=== PATIENT | female | born 1960 | race Caucasian/White ===

== ENCOUNTER 2017-09-25 11:08 | Outpatient (CLI) | payer BC ==
[~2017-09-25] VITALS: Ht 160 cm; Wt 158.6 kg
--- NOTE | ~2017-09-25 | HEMODYNAMI ---
PATIENT:MASOOD ALARCON MEDICAL RECORD: [id number] : 62 LOCATION:[facility] ADMISSION DATE: 09/25/17 Generatedon:09/25/201715:03 Patient name: MASOOD ALARCON Patient #: [id number] SSN: : 1960 Date of study: 09/25/2017 Page: Of Hemodynamic Procedure Report Patient Data Patient Demographics Procedure consent was obtained First Name: MASOOD Gender: Female Last Name: DORIAN : 1960 Middle Initial: D Age: 56 year(s) Patient #: [id number] Race: Unknown Additional ID: [id number] Contact details [address]: [address] [place] [address] State: [place] City: [place] Zip code: [address] Admission Admission Data Admission Date: 09/25/2017 Admission Time: 11:08 Lab Results Lab Result Date: 09/25/2017 Lab Result Time: 0:00 Biochemistry Name Units Result Min Max BUN mg/dl 12 --(-*--)-- 7 18 Creatinine mg/dl 0.7 --(*---)-- 0.6 1.3 CBC Name Units Result Min Max Hemoglobin g/dl 15.1 --(-*--)-- 13.5 17.5 Procedure Procedure Types Cath Procedure Diagnostic Procedure [facility] w/Coronaries Miscellaneous Procedures Moderate Sedation up to 45 minutes Procedure Description Procedure Date Procedure Date: 09/25/2017 Procedure Start Time: 14:43 Procedure End Time: 14:59 Procedure Staff Name Function Alo Arciniega MD Performing Physician Emily Taylor RT Monitor Monique Toscano RT Scrub Cornel Barajas RN Nurse Procedure Data Cath Procedure Fluoroscopy Diagnostic fluoroscopy Total fluoroscopy Time: 5 time: 5 min min Diagnostic fluoroscopy Total fluoroscopy dose: dose: 1326 mGy 1326 mGy Contrast Material Contrast Material Type Amount (ml) Isovue 300 94 Entry Location Entry Primary Successful Side Size Upsize Upsize Entry Closure Nolan ccessful Closure Location (Fr) 1 (Fr) 2 (Fr) Remarks Device Remarks Radial Right 6 Fr Mechanical artery Short Compression Estimated blood loss: 5 ml Diagnostic catheters Device Type Used For End Catheter Placement Diagnostic Terumo 5Fr Multi-vessel Grand Chain 110cm catheter Angiography Diagnostic Infinity 5Fr Right Coronary AR MOD Catheter Angiography Diagnostic Infinity 5Fr LV Angiography Pigtail catheter Procedure Complications No complications Procedure Medications Medication Administration Route Dosage Oxygen NC 2 l/min Heparin Flush Bag added to field 2 bags (1000units/500ml NS) 0.9% NaCl I.V. 100 ml/hr Radial Cocktail added to field 1 syringe (Verapomil 2mg/Nitro 400mcg/Heparin 1500units) Fentanyl I.V. 50 mcg Versed I.V. 1 mg Fentanyl I.V. 50 mcg Versed I.V. 1 mg Radial Cocktail I.A. 1 syringe (Verapomil 2mg/Nitro 400mcg/Heparin 1500units) Fentanyl I.V. 50 mcg Hemodynamics Rest HGB: 15.1 (g/dl) Heart Rate: 94 (bpm) Pressure Samples Time Site Value (mmHg) Purpose Heart Use Rate(bpm) 14:47 LV 134/24,26 Snapshot 97 14:47 LV 148/12,21 Snapshot 107 14:55 LV 156/14,23 Snapshot 96 Gradients Valve Time Site Site Mean SEP/DFP Peak To Heart Use 1 2 (mmHg) (sec/min) Peak Rate (mmHg) (bpm) Aortic 14:56 LV AO 102 Snapshots Pre Cath Intra NCS Post Cath Vital Signs Time Heart Resp SPO2 etCO2 NIBP (mmHg) Rhythm Pain Sedation Rate (ipm) (%) (mmHg) Status Level (bpm) 14:29:57 90 17 95 0 98/55(82) NSR 0 (11) 10(A) , No pain 14:36:00 82 18 94 26.2 107/53(76) NSR 0 (11) 10(A) , No pain 14:40:20 98 19 94 21.7 107/88(100) NSR 0 (11) 10(A) , No pain 14:44:52 99 18 93 26.2 88/60(79) NSR 0 (11) 10(A) , No pain 14:49:06 100 18 26.2 88/78(85) NSR 0 (11) 9(A) , No pain 14:53:37 102 16 92 29.2 92/50(78) NSR 0 (11) 9(A) , No pain 14:58:07 108 18 95 29.2 94/51(72) NSR 0 (11) 10(A) , No pain Medications Time Medication Route Dose Verified Delivered Reason Notes Effectiveness by by 14:37:19 Oxygen NC 2 l/min Alo Cornel Per Demian Barajas RN physician 14:37:32 Heparin Flush added 2 bags Alo Cornel used for Bag to Demian Barajas RN procedure (1000units/500ml field NS) 14:37:40 0.9% NaCl I.V. 100 Alo Cornel Per ml/hr Demian Barajas RN physician 14:37:48 Radial Cocktail added 1 Alo Cornel used for (Verapomil to syringe Demian Barajas RN procedure 2mg/Nitro field 400mcg/Heparin 1500units) 14:40:24 Fentanyl I.V. 50 mcg Alo Cornel for sedation Demian Barajas RN 14:40:31 Versed I.V. 1 mg Alo Cornel for sedation Demian Barajas RN 14:45:17 Fentanyl I.V. 50 mcg Alo Cornel for sedation Demian Barajas RN 14:45:21 Versed I.V. 1 mg Alo Cornel for sedation Demian Barajas RN 14:45:32 Radial Cocktail I.A. 1 Alo Alo for (Verapomil syringe Demian Arciniega MD vasodilation 2mg/Nitro 400mcg/Heparin 1500units) 14:49:33 Fentanyl I.V. 50 mcg Alo Cornel for sedation Demian Barajas RN Procedure Log Time Note 14:03:14 Emily Taylor RT(R) sent for patient. Start room use. 14:12:57 Diagnostic Cath Status : Elective 14:13:15 Time tracking: Regular hours 14:13:19 Plan of Care:Hemodynamics will remain stable., Cardiac rhythm will remain stable., Comfort level will be maintained., Respiratory function will remain adequate., Patient/ family verbilizes understanding of procedure., Procedure tolerated without complication., Recovers from procedure without complications.. 14:19:23 Patient received from Pre/Post Procedure Room to [facility] 2 Alert and oriented. Tansferred to table in Supine position. 14:19:33 Warm blankets applied, and jack hugger turned on for patient comfort. 14:19:34 Correct patient and procedure confirmed by team. 14:19:36 Signed procedure consent form obtained from patient. 14:19:44 ECG and BP/O2 sat monitors applied to patient. 14:28:21 Vital chart was started 14:32:14 Baseline sample Acquired. 14:32:20 Rhythm: sinus rhythm 14:32:22 Full Disclosure recording started 14:32:29 H&P Date Dictated: 09/25/2017 New H&P dictated by physician.. 14:32:30 Pre-procedure instructions explained to patient. 14:32:31 Pre-op teaching completed and patient verbalized understanding. 14:32:46 Family in waiting room. 14:33:08 Patient NPO since Midnight. 14:35:42 Is the patient allergic to Iodine/contrast media? Yes. 14:35:43 Was the patient premedicated? Yes 14:35:45 Is patient on blood thinner?No 14:37:19 Oxygen 2 l/min NC was administered by Cornel Barajas RN; Per physician; 14:37:32 Heparin Flush Bag (1000units/500ml NS) 2 bags added to field was administered by Cornel Barajas RN; used for procedure; 14:37:40 0.9% NaCl 100 ml/hr I.V. was administered by Cornel Barajas RN; Per physician; 14:37:48 Radial Cocktail (Verapomil 2mg/Nitro 400mcg/Heparin 1500units) 1 syringe added to field was administered by Cornel Barajas RN; used for procedure; 14:38:21 Patient diabetic? No. 14:38:24 Previous problem with sedation/anesthesia? No ? 14:38:26 Snore? Yes 14:38:35 Sleep apnea? Yes 14:38:36 Deviated septum? No 14:38:46 Opens mouth fully? Yes 14:38:47 Sticks out tongue? Yes 14:38:52 Airway obstruction? Yes asthma 14:38:55 Dentures? Yes out 14:39:00 Pre procedure: right dorsailis pedis pulse 2+ Normal; easily identifiable; not easily obliterated 14:39:03 Pre procedure: left dorsailis pedis pulse 2+ Normal; easily identifiable; not easily obliterated 14:39:06 Patient pain scale 0/10 ?. 14:39:12 IV patent on arrival in left forearm with 0.9% NaCl at [facility]. 14:39:30 Lab Result : BUN 12 mg/dl 14:39:30 Lab Result : Creatinine 0.7 mg/dl 14:39:30 Lab Result : Hemoglobin 15.1 g/dl 14:39:42 Lab results completed and on chart. 14:39:47 Right Radial & Right Groin area was prepped with chlora-prep and draped in sterile fashion 14:39:48 Alarms reviewed by R. N. 14:39:48 Sharps counted by scrub and verified by R.N. 14:39:50 Physician arrived 14:39:51 --------ALL STOP TIME OUT------ 14:39:52 Final Timeout: patient, procedure, and site verified with staff and physician. All members of the team are in agreement. 14:39:54 Right Radial & Right Groin site verified by team. 14:39:57 Physical assessment completed. ASA score P 2 - A patient with mild systemic disease as per Alo Arciniega MD. 14:40:01 Sedation plan: IV Moderate Sedation Medication:Versed, Fentanyl 14:40:24 Fentanyl 50 mcg I.V. was administered by Cornel Barajas RN; for sedation; 14:40:31 Versed 1 mg I.V. was administered by Cornel Barajas RN; for sedation; 14:42:47 Use device set Radial Dx 14:42:48 Acist Syringe opened to sterile field. 14:42:49 Medline Cath Pack opened to sterile field. 14:42:49 Bag Decanter opened to sterile field. 14:42:49 Terumo 6Fr Slender Glidesheath opened to sterile field. 14:42:50 St Osorio 260cm J .035 wire opened to sterile field. 14:42:50 Acist Hand Control opened to sterile field. 14:42:51 Acist Manifold opened to sterile field. 14:42:51 Tegaderm 4 x 4 opened to sterile field. 14:42:51 MBrace Wrist Support opened to sterile field. 14:42:53 Procedure started. 14:43:01 Local anesthetic to right radial artery with Lidocaine 2% by Alo Arciniega MD.INITIAL ACCESS ONLY 14:44:50 Zero performed for pressure channel P1 14:45:05 A 6 Fr Short sheath was inserted into the Right Radial artery 14:45:17 Fentanyl 50 mcg I.V. was administered by Cornel Barajas RN; for sedation; 14:45:21 Versed 1 mg I.V. was administered by Cornel Barajas RN; for sedation; 14:45:32 Radial Cocktail (Verapomil 2mg/Nitro 400mcg/Heparin 1500units) 1 syringe I.A. was administered by Alo Arciniega MD; for vasodilation; 14:46:00 A Diagnostic Terumo 5Fr Grand Chain 110cm catheter was advanced over the wire and used for Multi-vessel Angiography. 14:47:19 LV hemodynamics recorded. 14:47:21 LV gram done using ROBERTS 14:47:24 Injector settings: Ml/sec: 5, Volume: 15, 14:48:26 LCA angiography performed. 14:49:03 Injector settings: Ml/sec: 3, Volume: 6, 14:49:33 Fentanyl 50 mcg I.V. was administered by Cornel Barajas RN; for sedation; 14:50:58 Catheter removed. 14:51:36 A Diagnostic Infinity 5Fr AR MOD Catheter was advanced over the wire and used for Right Coronary Angiography. 14:53:32 RCA angiography performed. 14:53:36 Injector settings: Ml/sec: 3, Volume: 6, 14:54:08 Catheter removed. 14:54:24 A Diagnostic Infinity 5Fr Pigtail catheter was advanced over the wire and used for LV Angiography. 14:55:55 EF : 60 % 14:57:17 Aortic Root visualized 14:57:38 Catheter removed. 14:57:59 Sheath removed intact; hemostasis achieved with Mechanical Compression to the Right Radial artery. 14:58:00 Procedure ended.(Physican Out) 14:58:24 Terumo TR Band Large opened to sterile field. 14:58:29 Fluoroscopy time 05.00 minutes. 14:58:34 Flurop Dose total: 1326 14:58:34 Fluoroscopy dose: 1326 mGy 14:58:38 Contrast amount:Isovue 300 94ml. 14:58:39 Sharps counted by scrub and verified by R.N. 14:58:42 TR band inflated with 10cc of air. 14:58:43 Insertion/operative site no bleeding no hematoma. 14:58:47 Post right radial artery:stable 14:58:48 Post Procedure Pulses reassessed and unchanged 14:58:51 Post procedure rhythm: unchanged. 14:58:53 Estimated blood loss: 5 ml 14:58:54 Post procedure instruction explained to patient.Patient verbalizes understanding. 14:58:55 Patient needs reinforcement of post procedure teaching. 14:59:05 Procedure type changed to Cath procedure, Diagnostic procedure, LHC, LHC w/Coronaries, Miscellaneous Procedures, Moderate Sedation up to 45 minutes 14:59:06 Procedure and supply charges have been captured, reviewed, submitted and are correct. 14:59:10 Procedure Complication : No complications 14:59:12 Vital chart was stopped 14:59:13 See physician's report for complete and final results. 14:59:15 Report given to Pre/Post Procedure Room. 14:59:18 Patient transfered to Pre/Post Procedure Room with Stretcher. 14:59:19 Procedure ended. 14:59:19 Full Disclosure recording stopped 14:59:44 End room use (Document Last) Device Usage Item Name Manufacture Quantity Catalog Hospital Part Current Minimal Lot# / Number Charge Number Stock Stock Serial# Code Acist Acist 1 [id number] 698845 728941 850750 20 Syringe [employer] Medline Cardinal 1 [id number] 77801 545532 5 Cath Pack Health Bag Microtek 1 2002S 434795 67722 466646 5 [employer] Terumo 6Fr Terumo 1 [id number] 789726 223105 684280 [address] [place] [address] [place] 1 [id number] 412104 205953 869583 30 260cm J .035 wire Acist Hand Acist 1 57293 141427 310420 426116 5 Control [employer] Inc Acist Acist 1 61816 111494 187646 435959 5 Manifold Medical [employer] Inc Tegaderm 4 3M 1 1626W 974692 523122 315759 5 x 4 MBrace Advanced 1 140-0250-00 083543 26905 159139 5 Wrist Vascular Support Dynamics Diagnostic Terumo 1 91-8858 469750 507349 507562 5 Terumo 5Fr Grand Chain 110cm catheter Diagnostic Cardinal 1 [id number] 018635 162228 408765 15 Infinity Health 5Fr AR MOD Catheter Diagnostic Cardinal 1 [id number] 446166 947287 120494 5 Infinity Health 5Fr Pigtail catheter Terumo TR Terumo 1 [id number] 632526 219623 930791 40 Band Large Signature Audit [place] Stage Time Signature Unsigned Intra-Procedure 09/25/2017 Emily Taylor 3:03:07 PM RT(R) Signatures Monitor : Emily Taylor RT Signature : Date : Time : [id number] [place] [address]
[~2017-09-25 11:08] MED LIST: ADVIL200 MG PO; BYSTOLIC10 MG PO; BYSTOLIC5 MG PO; CELEXA20 MG PO; HYDROCODON-ACE1 EAC7 PO; MEDROL DOSE PACK4 MG PO; VENTOLIN HFA18 GM INH; ZOCOR20 MG PO; ZOFRAN ODT4 MG/UDTAB PO; ZOFRAN4 MG PO
[2017-09-25] MEDS ORDERED: VALIUM5 MG PO (11:55)
[2017-09-25] MEDS ORDERED: VENTOLIN HFA18 GM INH (11:56)
[2017-09-25] MEDS ORDERED: ZOCOR40 MG PO (11:56)
[2017-09-25 12:05] VITALS: BP 118/78; Ht 160 cm; Wt 158.6 kg
[2017-09-25 12:14] LABS: BASOPHILS 0 % (0-2); EOSINOPHILS 0 % (0-7); HEMATOCRIT 45.1 % (36.0-48.0); HEMOGLOBIN 15.1 g/dL (12-16); IMMATURE GRANULOCYTES 0.3 % (0-5); LYMPHOCYTES 6.7 % (15-50); MCH 31.4 pg (26.0-34.0); MCHC 33.5 g/dL (31.0-37.0); MCV 93.8 fL (80.0-100.0); MEAN PLATELET VOLUME 11.4 fL (7.4-10.4); MONOCYTES 1.5 % (2-11); NEUTROPHILS 91.5 % (40-80); RBC 4.81 10x6/uL (4.00-5.40); RDW 12.5 % (11.5-14.5)
[2017-09-25 12:16] LABS: PLATELET COUNT 236 10x3/uL (130-400)
[2017-09-25 12:30] LABS: CALC OSMOLALITY 280 mosm/kg (275-300); CALCIUM 9.1 mg/dL (8.5-10.1); CARBON DIOXIDE 24.9 mmol/L (21.0-32.0); CHLORIDE - SERUM 105 mmol/L (98-107); CREATININE - SERUM 0.7 mg/dL (0.6-1.3); GLUCOSE 130 mg/dL (74-106); SODIUM 140 mmol/L (136-145); UREA NITROGEN 12 mg/dL (7-18); eGFR NON AFRICAN AMERICAN > 90 mL/min (90-120)
--- NOTE | 2017-09-25 16:46 | NUR ---
1525 HOB ELEVATED, 2L NC APPLIED WHILE RESTING. ALL VITALS WNL. R WRIST TR BAND C/D/I. AT BEDSIDE. 1555 ALL VITALS WNL. R WRIST TR BAND C/D/I WITH NO HEMATOMA OR BLEEDING. DENIES NEEDS AT THIS TIME. 1645 2CC AIR REMOVED FROM R WRIST TR BAND. WILL MONITOR CLOSELY FOR BLEEDING.
--- NOTE | 2017-09-25 17:21 | NUR ---
PIV REMOVED FROM LEFT HAND WITH BANDAID APPLIED, 2CC AIR REMOVED FROM R WRIST TR BAND. AMBULATED TO BATHROOM TO VOID. BACK TO BEDSIDE TO DRESS WITH ASSIST FROM . D/C INSTRUCTIONS DISCUSSED WITH PATIENT AND . TR BAND WEANED COMPLETELY. TEGADERM AND COTTON BALL APPLIED TO R WRIST. BRACE REPLACED TO R WRIST. WHEELED OUT VIA WHEELCHAIR BY CATH TEAM.
== END 2017-09-25 17:24 | disposition home or self-care (01) ==
LOC: D.CATH 11:08
PROVIDERS: Internal Medicine Cardiovascular Disease
DX: I25.119 Atherosclerotic heart disease of native coronary artery with unspecified angina pectoris (principal); Z01.812 Encounter for preprocedural laboratory examination; Z95.5 Presence of coronary angioplasty implant and graft

== ENCOUNTER → 2018-07-02 08:51 | Outpatient (CLI) | payer BC ==
[2018-01-29 17:14] VITALS: BMI 60.3
[~2018-07-02 08:51] MED LIST changes: +VALIUM5 MG PO; +ZOCOR40 MG PO
== END | disposition home or self-care (01) ==
LOC: D.CT 06-27 10:30
DX: R10.9 Unspecified abdominal pain (principal); M54.6 Pain in thoracic spine

== ENCOUNTER → 2018-07-23 10:32 | Outpatient (CLI) | payer BC ==
[2018-01-29 17:14] VITALS: BMI 60.3
== END | disposition home or self-care (01) ==
LOC: D.US 10:32
DX: R60.0 Localized edema (principal)

== ENCOUNTER → 2019-06-24 10:08 | Outpatient (CLI) | payer BC ==
[2018-01-29 17:14] VITALS: BMI 60.3
== END | disposition home or self-care (01) ==
LOC: D.HCCARDIO 10:00
PROVIDERS: ATTEND Internal Medicine Cardiovascular Disease
DX: R00.2 Palpitations (principal)

== ENCOUNTER 2019-10-15 15:51 | Emergency (ER) | payer BC ==
[~2019-10-15] VITALS: Ht 160 cm; Wt 157.3 kg
[2019-10-15 15:56] VITALS: Ht 160 cm; Wt 157.3 kg
[2019-10-15] MEDS ORDERED: SINGULAIR10 MG PO (15:59)
[2019-10-15] MEDS ORDERED: FUROSEMIDE20 MG PO (15:59)
[2019-10-15] MEDS ORDERED: TOPROL XL50 MG PO (15:59)
[2019-10-15 16:46] LABS: BASOPHILS 0.1 % (0-2); EOSINOPHILS 0.6 % (0-7); HEMATOCRIT 46.4 % (36.0-48.0); HEMOGLOBIN 15.6 g/dL (12-16); IMMATURE GRANULOCYTES 0.1 % (0-5); LYMPHOCYTES 4.5 % (15-50); MCH 32.4 pg (26.0-34.0); MCHC 33.6 g/dL (31.0-37.0); MCV 96.3 fL (80.0-100.0); MEAN PLATELET VOLUME 10.3 fL (7.4-10.4); MONOCYTES 4.8 % (2-11); NEUTROPHILS 89.9 % (40-80); RBC 4.82 10x6/uL (4.00-5.40); WBC 14.7 10x3/uL (4.8-10.8)
[2019-10-15 16:48] LABS: PLATELET COUNT 174 10x3/uL (130-400)
[2019-10-15 16:50] LABS: CALC OSMOLALITY 281 mosm/kg (275-300); CALCIUM 9.2 mg/dL (8.5-10.1); CHLORIDE - SERUM 106 mmol/L (98-107); CREATININE - SERUM 0.7 mg/dL (0.6-1.3); GLUCOSE 113 mg/dL (74-106); SODIUM 140 mmol/L (136-145); UREA NITROGEN 18 mg/dL (7-18); eGFR NON AFRICAN AMERICAN > 90 mL/min (90-120)
[2019-10-15 16:58] LABS: ALBUMIN 3.1 g/dL (3.4-5.0); ALKALINE PHOSPHATASE 79 U/L (46-116); ALT (SGPT) 27 U/L (10-68); AMYLASE - SERUM 33 U/L (25-115); BILIRUBIN - TOTAL 0.73 mg/dL (0.2-1.3); LIPASE 114 U/L (73-393); PROTEIN - SERUM 7.9 g/dL (6.4-8.2)
[2019-10-15 16:59] LABS: TROPONIN-I < 0.017 ng/mL (0.000-0.060)
[2019-10-15 17:31] LABS: APPEARANCE CLEAR (CLEAR); BILIRUBIN NEGATIVE (NEGATIVE); COLOR YELLOW (YELLOW); GLUCOSE NEGATIVE (NEGATIVE); KETONE NEGATIVE (NEGATIVE); NITRITE NEGATIVE (NEGATIVE); PROTEIN NEGATIVE (NEGATIVE); SPECIFIC GRAVITY 1.015 (1.005-1.020); UROBILINOGEN NORMAL (NORMAL)
[2019-10-15] MEDS ORDERED: ZOFRAN8 MG PO (18:03)
[2019-10-15 18:51] VITALS: BP 1236/73
== END 2019-10-15 18:45 | disposition home or self-care (01) ==
LOC: D.ER 15:51
PROVIDERS: Emergency Medicine
DX: R10.9 Unspecified abdominal pain (principal); R11.2 Nausea with vomiting, unspecified; I10 Essential (primary) hypertension; J45.909 Unspecified asthma, uncomplicated

== ENCOUNTER → 2020-04-09 08:32 | Outpatient (CLI) | payer OTHER ==
[2019-10-15 15:56] VITALS: BMI 61.4
[~2020-04-09 08:32] MED LIST changes: +FUROSEMIDE20 MG PO; +SINGULAIR10 MG PO; +TOPROL XL50 MG PO; +ZOFRAN8 MG PO
--- NOTE | 2020-04-10 08:32 | EC ---
PATIENT:MASOOD ALARCON DATE OF SERVICE: 04/09/20 SEX: F MEDICAL RECORD: [id number] DATE OF : 62 LOCATION:[facility] AGE OF PATIENT: 59 ADMISSION DATE: 04/09/20 REFERRING PHYSICIAN: INTERPRETING PHYSICIAN: TERENCE DARNELL MD ECHOCARDIOGRAM REPORT ECHO CHARGES 4 ECHO COMPLETE Date: 04/09/20 CLINICAL DIAGNOSIS: EDEMA ECHOCARDIOGRAPHIC MEASUREMENTS (adult normal given) AC root (d.<3.7cm) 2.9 cm LV Septum d (<1.2 cm> 1.2 cm Valve Excursion 1.4 cm LV Septum (systole) 1.7 cm Left Atria (s.<4.0cm> 4.4 cm LVPW d(<1.2cm) 1.2 cm RV (d.<2.3cm) 3.7 cm LVPW (sytole) 1.3 cm LV diastole(<5.6CM) 6.6 cm MV E-F(>70mm/sec) cm LV systole 5.3 cm LVOT Diameter 2.3 cm MV exc.(>10mm) cm Est.ejection fraction (50-75%) % DOPPLER: LVIT cm/sec A 88 cm/sec E 86 cm/sec LA cm/sec RVSP 22.3 mmHg LVOT 98 cm/sec AOP1/2T m/s Asc. Ao 143 cm/sec RVOT 50 cm/sec RA cm/sec PA 43 cm/sec AV Gradient Peak 8.2 mmHg AV Mean 4.9 mmHg AV Area 3.2 cm MV Gradient Peak 3.7 mmHg MV Mean 2.4 mmHg MV Area cm COMMENTS: Ceramist: Zoey [facility] Car Dispatcher: 3 Dr. Sun TAPE# PACS Pericardial Effusion N DATE OF SERVICE: Adequate 2D, color flow imaging, spectral Doppler, and M-Mode Borderline LVH. LV internal dimension is normal. Wall motion is normal. EF is greater than or equal to 55%. Aortic valve is tricuspid. There is no evidence of stenosis by Doppler interrogation. Left atrium is dilated at 4.4 cm. Mitral valve shows no prolapse. Trace MR. Right-sided chambers are grossly normal. Trace TR. ECHOCARDIOGRAM REPORT [id number] MASOOD ALARCON TRANSINT:[id number] Voice Confirmation ID: [id number] DOCUMENT ID: [id number] TERENCE DARNELL MD at 0832 CC: [id number] DICTATION DATE: 04/09/20 1008 LAB SPECIALIST: 04/09/20 1125 DEP CLI 04/09/20 [id number] [place] [address]
== END | disposition home or self-care (01) ==
LOC: D.ECHO 08:32
PROVIDERS: ATTEND Family Medicine
DX: R60.9 Edema, unspecified (principal)

== ENCOUNTER → 2020-04-16 08:28 | Outpatient (CLI) | payer OTHER ==
[2019-10-15 15:56] VITALS: BMI 61.4
== END | disposition home or self-care (01) ==
LOC: D.HCCARDIO 08:28
PROVIDERS: ATTEND Internal Medicine Cardiovascular Disease
DX: I48.91 Unspecified atrial fibrillation (principal)

== ENCOUNTER 2020-04-26 12:06 | Outpatient (CLI) | payer OTHER ==
[~2020-04-26] VITALS: Ht 160 cm; Wt 162.7 kg
--- NOTE | ~2020-04-26 | HEMODYNAMI ---
PATIENT:MASOOD ALARCON MEDICAL RECORD: [id number] : 62 LOCATION:[facility] D.2119 [facility]# [id number] ADMISSION DATE: 04/26/20 Generatedon:04/27/20208:01 Patient name: MASOOD ALARCON Patient #: [id number] SSN: : 1960 Date of study: 04/27/2020 Page: Of Hemodynamic Procedure Report Patient Data Patient Demographics Procedure consent was obtained First Name: MASOOD Gender: Female Last Name: DORIAN : 1960 Middle Initial: D Age: 59 year(s) Patient #: [id number] Race: Unknown Additional ID: [id number] Contact details Address: [address] [place] [address] State: [place] City: [place] Zip code: [address] Past Medical History Performed procedures and imaging results Date Procedure Procedure Results Comments Stress testing Positive->Intermediate with SPECT MPI risk Allergies Allergen Reaction Date Comments Reported Other allergy 01/29/2018 shellfish, sulfa, codeine, compazine, imitrex, morphine, sulfa, ultracet, ultram. Other allergy 04/27/2020 CODEINE, COMPAZINE, IMITREX, MORPHINE, SHELLFISH DERIVED, SULFA, ULTRACET, ULTRAM Admission Admission Data Admission Date: 04/26/2020 Admission Time: 12:06 Room #: D.2119 Height (in.): 62 BSA: 2.42 (m2) Height (cm.): 157.48 BMI: 63.83 (kg/m2) Weight (lbs.): 349 Weight (kg.): 158.3 Lab Results Lab Result Date: 04/27/2020 Lab Result Time: 0:00 Biochemistry Name Units Result Min Max BUN mg/dl 13 --(--*-)-- 7 18 Creatinine mg/dl 0.8 --(-*--)-- 0.6 1.3 eGFR ml/min 78 *-(----)-- 90 120 NONAFRICAN CBC Name Units Result Min Max Hematocrit % 44.9 --(*---)-- 42 54 Hemoglobin g/dl 14.6 --(-*--)-- 13.5 17.5 Procedure Procedure Types Cath Procedure Diagnostic Procedure [facility] w/Coronaries Sedation Charges Moderate Sedation up to 15 minutes Procedure Description Procedure Date Procedure Date: 04/27/2020 Procedure Start Time: 7:37 Procedure End Time: 7:59 Procedure Staff Name Function Alo Arciniega MD Performing Physician Grecia Barlow RN Nurse Ciera Ugarte RT Boat Hand Madonna Rodgers RT Scrub Monique Toscano RT Monitor Procedure Data Cath Procedure Fluoroscopy Diagnostic fluoroscopy Total fluoroscopy Time: 5.7 time: 5.7 min min Diagnostic fluoroscopy Total fluoroscopy dose: dose: 1388 mGy 1388 mGy Contrast Material Contrast Material Type Amount (ml) Isovue 300 91 Entry Location Entry Primary Successful Side Size Upsize Upsize Entry Closure Nolan ccessful Closure Location (Fr) 1 (Fr) 2 (Fr) Remarks Device Remarks Radial Right 6 Fr Mechanical artery Short Compression Estimated blood loss: 10 ml Diagnostic catheters Device Type Used For End Catheter Placement DIAGNOSTIC Industry 110cm 5 Procedure Fr catheter ([id number]) DIAGNOSTIC AR MOD 5Fr Procedure Catheter ([id number]) DIAGNOSTIC Industry 4.5 5Fr Procedure catheter (485357) DIAGNOSTIC Pigtail 5Fr Procedure catheter ([id number]) Procedure Complications No complications Procedure Medications Medication Administration Route Dosage 0.9% NaCl I.V. 100 ml/hr Oxygen etCO2 Nasal cannula 2 l/min Lidocaine 2% added to field 20 Heparin Flush Bag added to field 2 bags (1000units/500ml NS) Radial Cocktail added to field 1 syringe (Verapamil 2mg/Nitro 400mcg/Heparin 1500units) Versed I.V. 2 mg Fentanyl I.V. 50 mcg Fentanyl I.V. 50 mcg Hemodynamics Rest BSA: 2.42 (m2) O2 Consumption: Estimated: 243.44 (ml/min) O2 Consumption indexed : Estimated:100.6 (ml/min/m) Heart Rate: 84 (bpm) Pressure Samples Time Site Value (mmHg) Purpose Heart Use Rate(bpm) 7:42 AO 141/86(108) Snapshot 96 7:53 LV 155/-6,14 Snapshot 88 7:53 AO 138/81(108) Pullback 89 7:53 LV 186/3,31 Pullback 89 Gradients Valve Time Site 1 Site 2 Mean SEP/DFP Peak To Heart Use (mmHg) (sec/min) Peak Rate (mmHg) (bpm) Aortic 7:53 LV AO 24 9 48 89 186/3,31 138/81(108) Calculations Valve P-P Mean Valve Index Valve Source Name Gradient Area Flow (cm2) Aortic 48 24 48 24 Snapshots Pre Cath Intra NCS Post Cath Vital Signs Time Heart Resp SPO2 etCO2 NIBP (mmHg) Rhythm Pain Sedation Rate (ipm) (%) (mmHg) Status Level (bpm) 7:23:39 68 15 100 32.1 Measuring NSR 0 (11) 10(A) , No pain 7:23:55 81 11 97 17.2 143/86(111) NSR 0 (11) 10(A) , No pain 7:28:11 78 13 97 24.6 150/85(119) NSR 0 (11) 10(A) , No pain 7:32:27 85 13 97 23.9 141/92(116) NSR 0 (11) 10(A) , No pain 7:36:41 80 14 97 29.1 158/86(112) NSR 0 (11) 10(A) , No pain 7:40:54 95 15 98 29.9 151/91(108) NSR 0 (11) 10(A) , No pain 7:45:03 94 12 97 33.6 128/84(112) NSR 0 (11) 9(A) , No pain 7:50:02 94 10 98 34.4 Measuring NSR 0 (11) 9(A) , No pain 7:50:04 97 10 98 34.4 136/85(122) NSR 0 (11) 9(A) , No pain 7:54:12 73 14 97 34.4 153/91(117) NSR 0 (11) 10(A) , No pain 7:58:26 78 15 96 33.6 144/87(111) NSR 0 (11) 10(A) , No pain Medications Time Medication Route Dose Verified Delivered Reason Notes Ef fectiveness by by 7:19:23 0.9% NaCl I.V. 100 Alo Grecia used for ml/hr Demian Barlow submarine operator 7:19:30 Oxygen etCO2 2 l/min Alo Grecia used for Nasal Demian Barlow procedure cannula RN 7:19:36 Lidocaine 2% added 20ml Alo Alo for local to vial Demian Arciniega MD anesthetic field 7:19:40 Heparin Flush added 2 bags Alo Alo used for Bag to Demian Arciniega MD procedure (1000units/500ml field NS) 7:19:45 Radial Cocktail added 1 Alo Alo used for (Verapamil to syringe Demian Arciniega MD procedure 2mg/Nitro field 400mcg/Heparin 1500units) 7:36:48 Versed I.V. 2 mg Alo Grecia for Demian Barlow sedation RN 7:36:56 Fentanyl I.V. 50 mcg Alo Grecia for Demian Barlow sedation RN 7:41:57 Fentanyl I.V. 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 (MUST COMPLETE FOR ALL OUTPATIENTS). 6:57:22 Patient allergic to Other allergyCODEINE, COMPAZINE, IMITREX, MORPHINE, SHELLFISH DERIVED, SULFA, ULTRACET, ULTRAM 6:57:28 Procedure Status Urgent Heart Cath (IP). 6:57:29 Time tracking: Regular hours (M-F 7:00 - 5:00) 6:57:33 Plan of Care:Hemodynamics will remain stable., Cardiac rhythm will remain stable., Comfort level will be maintained., Respiratory function will remain adequate., Patient/ family verbilizes understanding of procedure., Procedure tolerated without complication., Recovers from procedure without complications.. 7:03:08 Ciera Ugarte RT(R) sent for patient. Start room use. 7:07:43 Lab Result : Creatinine 0.8 mg/dl 7:07:43 Lab Result : BUN 13 mg/dl 7:07:43 Lab Result : Hematocrit 44.9 % 7:07:43 Lab Result : Hemoglobin 14.6 g/dl 7:07:43 Lab Result : eGFR NONAFRICAN 78 ml/min 7:10:31 Lab results completed and on chart. 7:11:15 Stress Test: yes; abnormal ANTERIOR, LATERAL, INFERIOR 7:11:20 Risk of Mortality: 0.1 7:11:24 Risk of blood transfusion: 2.2 7:11:29 Risk of THOM: 0.6 7:19:23 0.9% NaCl 100 ml/hr I.V. was administered by Grecia Barlow RN; used for procedure; Verbal order read back and verified. 7:19:30 Oxygen 2 l/min etCO2 Nasal cannula was administered by Grecia Barlow RN; used for procedure; Verbal order read back and verified. 7:19:36 Lidocaine 2% 20ml vial added to field was administered by Alo Arciniega MD; for local anesthetic; Verbal order read back and verified. 7:19:40 Heparin Flush Bag (1000units/500ml NS) 2 bags added to field was administered by Alo Arciniega MD; used for procedure; Verbal order read back and verified. 7:19:45 Radial Cocktail (Verapamil 2mg/Nitro 400mcg/Heparin 1500units) 1 syringe added to field was administered by Alo Arciniega MD; used for procedure; Verbal order read back and verified. 7:21:49 Vital chart was started 7:24:31 Patient received from Pre/Post Procedure Room to CCL 1 Alert and oriented. Tansferred to table in Supine position. 7:24:38 Warm blankets applied, and jack hugger turned on for patient comfort. 7:24:38 Correct patient and procedure confirmed by team. 7:24:39 ECG and BP/O2 sat monitors applied to patient. 7:24:47 Rhythm: sinus rhythm 7:24:48 Full Disclosure recording started 7:24:49 Pre-procedure instructions explained to patient. 7:24:49 Pre-op teaching completed and patient verbalized understanding. 7:24:51 Family in patients room. 7:24:52 Patient NPO since Midnight. 7:24:54 Is the patient allergic to Iodine/contrast media? Yes. 7:24:55 Was the patient premedicated? Yes 7:24:56 Is patient on blood thinner?No 7:24:58 Patient diabetic? No. 7:25:01 Patient not . Patient is over age 55. 7:25:03 Previous problem with sedation/anesthesia? No ? 7:25:05 Snore? Yes 7:25:06 Sleep apnea? Yes 7:25:07 Deviated septum? No 7:25:07 Opens mouth fully? Yes 7:25:09 Sticks out tongue? Yes 7:25:11 Airway obstruction? No ? 7:25:13 Dentures? No ? 7:25:16 Pre procedure: right dorsailis pedis pulse 1+ Palpable, but thready & weak; easily obliterated 7:25:18 Modified Alberto's test Ulnar < 7 seconds 7:25:19 Patient pain scale 0/10 ?. 7:25:26 IV patent on arrival in left antecubital with 0.9% NaCl at [facility]. 7:25:33 Right Radial & Right Groin area was prepped with chlora-prep and draped in sterile fashion 7:25:34 Alarms reviewed by R. N. 7:25:34 Sharps counted by scrub and verified by R.N. 7:27:11 Use device set Radial Dx or PCI 7:27:12 ACIST Syringe (45147) opened to sterile field. 7:27:13 Bag Decanter (2002) opened to sterile field. 7:27:14 ACIST Hand Control (27615) opened to sterile field. 7:27:14 ACIST Manifold (91124) opened to sterile field. 7:27:15 Tegaderm 4 x 4 (1626W) opened to sterile field. 7:27:16 Medline Cath Pack ([id number]) opened to sterile field. 7:27:16 MBrace Wrist Support ([id number]) opened to sterile field. 7:27:17 NEEDLE Cook 21G 4cm Radial (R22433) opened to sterile field. 7:27:20 EMERALD Guide Wire (503-708) opened to sterile field. 7:27:20 SHEATH 6FR RAIN (4870004) opened to sterile field. 7:33:32 --------ALL STOP TIME OUT------ 7:33:33 Final Timeout: patient, procedure, and site verified with staff and physician. All members of the team are in agreement. 7:33:38 Right Radial & Right Groin site verified by team. 7:33:40 Fire Safety Assessment: A--An alcohol-based skin anteseptic being used preoperatively., C--Open oxygen or nitrous oxide is being used., D--An ESU, laser, or fiber-optic light is being used. 7:33:50 Physical assessment completed. ASA score P 2 - A patient with mild systemic disease as per Alo Arciniega MD. 7:33:54 2) 60-89 Mildly reduced kidney function, and other findings (as for stage 1) point to kidney disease. 7:33:57 Maximum allowable contrast dose (3.7 X eGFR X 0.75)216 ml. 7:34:01 Sedation plan: IV Moderate Sedation Medication:Versed, Fentanyl 7:35:10 Zero performed for pressure channel P1 7:36:48 Versed 2 mg I.V. was administered by Grecia Barlow RN; for sedation; Verbal order read back and verified. 7:36:56 Fentanyl 50 mcg I.V. was administered by Grecia Barlow RN; for sedation; Verbal order read back and verified. 7:37:07 Procedure started. 7:37:18 Local anesthetic to right radial artery with Lidocaine 2% by Alo Arciniega MD.INITIAL ACCESS ONLY 7:39:44 A 6 Fr Short sheath was inserted into the Right Radial artery 7:40:20 A DIAGNOSTIC Industry 110cm 5 Fr catheter (664245) was advanced over the wire and used for Procedure. 7:41:24 Baseline sample Acquired. 7:41:57 Fentanyl 50 mcg I.V. was administered by Grecia Barlow RN; for sedation; Verbal order read back and verified. 7:44:26 Catheter exchanged over wire. 7:46:56 A DIAGNOSTIC AR MOD 5Fr Catheter ([id number]) was advanced over the wire and used for Procedure. 7:46:59 RCA angiography performed. 7:48:07 Catheter removed. 7:48:17 A DIAGNOSTIC Industry 4.5 5Fr catheter (970224) was advanced over the wire and used for Procedure. 7:49:43 LCA angiography performed. 7:51:47 Catheter removed. 7:51:54 A DIAGNOSTIC Pigtail 5Fr catheter (257291W) was advanced over the wire and used for Procedure. 7:53:36 EF : 60 % 7:54:34 LV gram done using ROBERTS 7:54:37 Aortic Root visualized 7:54:40 ZEPHYR LARGE TR BAND (737926) opened to sterile field. 7:55:17 Catheter removed. 7:55:48 Sheath removed intact; hemostasis achieved with Mechanical Compression to the Right Radial artery. 7:55:52 Procedure ended.(Physican Out) 7:56:29 Fluoroscopy time 05.70 minutes. 7:56:36 Fluoroscopy dose: 1388 mGy 7:56:36 Flurop Dose total: 1388 7:56:43 Dose Area Product 88995 mGy/cm. 7:56:47 Contrast amount:Isovue 300 91ml. 7:56:50 Maximum allowable dose exceeded? No. 7:56:53 Sharps counted by scrub and verified by R.N. 7:56:57 [place] band inflated with 12cc of air. 7:56:58 Insertion/operative site no bleeding no hematoma. 7:57:01 Post Procedure Pulses reassessed and unchanged 7:57:15 Post-procedure physical assessment completed. ASA score P 3 - A patient with severe systemic disease as per Alo Arciniega MD. 7:57:20 Post procedure rhythm: unchanged. 7:57:23 Estimated blood loss: 10 ml 7:57:27 Post procedure instruction explained to patient.Patient verbalizes understanding. 7:57:37 Procedure type changed to Cath procedure, Diagnostic procedure, LHC, C w/Coronaries, Sedation Charges, Moderate Sedation up to 15 minutes 7:58:41 Procedure and supply charges have been captured, reviewed, submitted and are correct. 7:59:01 Procedure Complication : No complications 7:59:04 Vital chart was stopped 7:59:05 [facility] Findings: mild to moderate CAD (<70%) 7:59:26 Report given to Med II. 7:59:40 Procedure ended. 7:59:40 Full Disclosure recording stopped 7:59:46 End room use (Document Last) 8:00:14 End room use (Document Last) 8:00:37 End room use (Document Last) Device Usage Item Name Manufacture Quantity Catalog Hospital Part Current Minima l Lot# / Number Charge Number Stock Stock Serial# Code ACIST Acist 1 64696 486243 481246 170159 20 Syringe Medical (04095) Systems Inc Bag Microtek 1 155006 12320 130073 5 Decanter Medical Inc. () ACIST Hand Acist 1 94586 721059 243125 817645 5 Control Medical (40239) Systems Inc ACIST Acist 1 32143 539282 266096 129522 5 Manifold Medical (77876) Systems Inc Tegaderm 4 3M 1 1626W 798781 494353 199672 5 x 4 (1626W) Medline Medline 1 [id number] 443466 12431 213403 5 Cath Pack ([id number]) MBrace Advanced 1 140-0250-00 908857 71609 998042 5 Wrist Vascular Support Dynamics (500165318) NEEDLE Cook Cook Medical 1 N97596 690565 079592 672717 5 21G 4cm Radial (M23267) EMERALD Cardinal 1 502-455 268908 615657 171881 5 Guide Wire Health (502455) SHEATH 6FR Cardinal 1 6413901 611066 2055375 036202 5 RAIN Health (0748779) DIAGNOSTIC Terumo 1 40-5013 291154 754794 808697 5 Industry 110cm 5 Fr catheter (554489) DIAGNOSTIC Cardinal 1 [id number] 107867 352931 222545 15 AR MOD 5Fr Health Catheter (089662U) DIAGNOSTIC Terumo 1 40-5012 215926 695682 359924 5 Industry 4.5 5Fr catheter (841013) DIAGNOSTIC Cardinal 1 [id number] 515312 011061 771288 5 Pigtail 5Fr Health catheter (837740S) ZEPHYR Cardinal 1 623336 095262 7522522 120335 5 LARGE TR Health BAND (259107) Signature Audit [place] Stage Time Signature Unsigned Intra-Procedure 04/27/2020 Monique Toscano 8:00:14 AM RT(R) Intra-Procedure 04/27/2020 Grecia Barlow 8:00:37 AM RN Intra-Procedure 04/27/2020 Alo Arciniega MD 8:01:38 AM Signatures Performing Physician : Signature : Alo Arciniega MD Date : Time : Nurse : Grecia Barlow RN Signature : Date : Time : Monitor : Monique Everton Signature : RT Date : Time : [address] [place] [address]
[2020-04-26] MEDS ORDERED: CYCLOBENZAPRINE10 MG PO (12:23)
[2020-04-26 12:39] VITALS: BP 135/85; BMI 63.6
[2020-04-26 12:58] LABS: BASOPHILS 0.1 % (0-2); EOSINOPHILS 0 % (0-7); HEMATOCRIT 44.9 % (36.0-48.0); HEMOGLOBIN 14.6 g/dL (12-16); IMMATURE GRANULOCYTES 0.2 % (0-5); LYMPHOCYTES 6.4 % (15-50); MCH 30.7 pg (26.0-34.0); MCHC 32.5 g/dL (31.0-37.0); MCV 94.3 fL (80.0-100.0); MEAN PLATELET VOLUME 10.5 fL (7.4-10.4); MONOCYTES 1.7 % (2-11); NEUTROPHILS 91.6 % (40-80); PLATELET COUNT 195 10x3/uL (130-400); RBC 4.76 10x6/uL (4.00-5.40); RDW 12.5 % (11.5-14.5)
[2020-04-26 13:12] LABS: ALT (SGPT) 26 U/L (10-68); CALC OSMOLALITY 280 mosm/kg (275-300); CALCIUM 9.2 mg/dL (8.5-10.1); CARBON DIOXIDE 28.7 mmol/L (21.0-32.0); CHLORIDE - SERUM 106 mmol/L (98-107); CHOL - HDL RATIO 3.4 ratio (2.3-4.1); CHOLESTEROL, TOTAL 195 mg/dL (0-200); CREATININE - SERUM 0.8 mg/dL (0.6-1.3); GLUCOSE 130 mg/dL (74-106); HDL CHOLESTEROL 58 mg/dL (32-96); LDL CHOLESTEROL 127 mg/dL (0-100); LDL-HDL RATIO 2.2 ratio (1.5-3.5); SODIUM 140 mmol/L (136-145); TRIGLYCERIDE 51 mg/dL (30-200); UREA NITROGEN 13 mg/dL (7-18); eGFR NON AFRICAN AMERICAN 78 mL/min (90-120)
--- NOTE | 2020-04-26 15:29 | NUR ---
DUE TO STORMS PROMOTIONAL MARKETING ANALYST NOT AVAILABLE. PT WILL SPEND THE NIGHT AND HAVE CATH PROCEDURE TOMORROW.
--- NOTE | 2020-04-26 15:45 | NUR ---
DR. MEZA IN TO TALK TO PT. NEW ORDERS REC'D. PT WILL BE ADMITTED TO PCU FOR LHC IN AM.
--- NOTE | 2020-04-26 16:15 | NUR ---
PT TRANSFERRED VIA TO RM 2119.
--- NOTE | 2020-04-26 16:25 | NUR ---
RECEIVED PT FROM CATH HOLDING TO ROOM 2118 VIA W/C AAOX4 RESP UNLABORED SKIN W/D COLOR WNL NAD NOTED
[2020-04-26 18:33] VITALS: BP 121/84; Ht 160 cm; Wt 162.7 kg
[2020-04-26 18:54] VITALS: BP 121/84
[2020-04-26 21:45] VITALS: BP 92/67
--- NOTE | 2020-04-26 21:45 | NUR ---
HS MEDS GIVEN WITH FRESH ICE WATER, PT C/O TRINH. PAGE OUT TO CARDIOLOGY TO ASK FOR TYLENOL.
[2020-04-27 00:06] VITALS: BP 117/66
[2020-04-27 04:11] VITALS: BP 125/63
--- NOTE | 2020-04-27 07:00 | NUR ---
TO ORDAINED MINISTER BY BED.
[2020-04-27 08:00] VITALS: BP 123/73
--- NOTE | 2020-04-27 08:20 | NUR ---
BACK FROM WELDING TECHNICIAN. VS WNL. RIGHT WRIST STABLE WITHOUT BLEEDING OR HEMATOMA NOTED. WILL MONITOR.
--- NOTE | 2020-04-27 11:12 | NUR ---
TR BAND DCD WITHOUT BLEEDING OR HEMATOMA NOTED. IV AND TELEMETRY DCD. DC PLANS GIVEN. UNDERSTANDING VOICED. ESCORTED TO CAR BY W/C.
== END 2020-04-27 11:30 | disposition home or self-care (01) ==
LOC: D.M2 12:06 → D.CATH 12:06 → D.M2 16:24 → D.CATH 04-27 11:30
PROVIDERS: ATTEND Internal Medicine Cardiovascular Disease
DX: I20.9 Angina pectoris, unspecified (principal); I10 Essential (primary) hypertension; E78.5 Hyperlipidemia, unspecified; Z95.0 Presence of cardiac pacemaker; K21.9 Gastro-esophageal reflux disease without esophagitis; R06.09 Other forms of dyspnea

== ENCOUNTER 2020-07-18 20:13 | Emergency (ER) | payer OTHER ==
[~2020-07-18] VITALS: Ht 160 cm; Wt 164.1 kg
[~2020-07-18 20:13] MED LIST changes: +CYCLOBENZAPRINE10 MG PO
[2020-07-18 20:21] VITALS: Ht 160 cm; Wt 164.1 kg
[2020-07-18 20:36] LABS: BILIRUBIN NEGATIVE (NEGATIVE); KETONE NEGATIVE (NEGATIVE); NITRITE NEGATIVE (NEGATIVE); UROBILINOGEN NORMAL mg/dL (< 2)
[2020-07-18 21:34] LABS: BASOPHILS 0.2 % (0-2); EOSINOPHILS 0.4 % (0-7); HEMATOCRIT 44.4 % (36.0-48.0); HEMOGLOBIN 14.7 g/dL (12-16); IMMATURE GRANULOCYTES 0.3 % (0-5); LYMPHOCYTES 18.5 % (15-50); MCH 31.6 pg (26.0-34.0); MCHC 33.1 g/dL (31.0-37.0); MCV 95.5 fL (80.0-100.0); MEAN PLATELET VOLUME 11.6 fL (7.4-10.4); MONOCYTES 6.4 % (2-11); NEUTROPHILS 74.2 % (40-80); PLATELET COUNT 161 10x3/uL (130-400); RBC 4.65 10x6/uL (4.00-5.40); RDW 12.9 % (11.5-14.5); WBC 14.6 10x3/uL (4.8-10.8)
[2020-07-18 21:39] LABS: CALC OSMOLALITY 280 mosm/kg (275-300); CHLORIDE - SERUM 107 mmol/L (98-107); CREATININE - SERUM 0.8 mg/dL (0.6-1.3); GLUCOSE 99 mg/dL (74-106); POTASSIUM - SERUM 4.3 mmol/L (3.5-5.1); SODIUM 139 mmol/L (136-145); UREA NITROGEN 21 mg/dL (7-18); eGFR NON AFRICAN AMERICAN 78 mL/min (90-120)
[2020-07-18 21:56] LABS: ALKALINE PHOSPHATASE 88 U/L (30-120); ALT (SGPT) 2 U/L (10-68); BILIRUBIN - TOTAL 0.33 mg/dL (0.2-1.3); CKMB 0.4 U/L (0.0-3.6); CREATINE KINASE 67 UL (21-215); PROTEIN - SERUM 7.1 g/dL (6.4-8.2)
[2020-07-18 22:08] LABS: ALBUMIN 3.3 g/dL (3.4-5.0); TROPONIN-I < 0.017 ng/mL (0.000-0.060)
[2020-07-18] MEDS ORDERED: TALWIN NX1 TAB PO (23:22)
[2020-07-18 23:46] VITALS: BP 103/63
== END 2020-07-18 23:51 | disposition home or self-care (01) ==
LOC: D.ER 20:13
PROVIDERS: Family Medicine
DX: G43.909 Migraine, unspecified, not intractable, without status migrainosus (principal); R55 Syncope and collapse; I10 Essential (primary) hypertension; Z95.0 Presence of cardiac pacemaker; J45.909 Unspecified asthma, uncomplicated; K21.9 Gastro-esophageal reflux disease without esophagitis

== ENCOUNTER 2020-07-26 06:58 | Day surgery (SDC) | payer OTHER ==
[~2020-07-26] VITALS: Ht 160 cm; Wt 165.7 kg
--- NOTE | ~2020-07-26 | HEMODYNAMI ---
PATIENT:MASOOD ALARCON MEDICAL RECORD: [id number] : 62 LOCATION:[facility] ADMISSION DATE: 07/26/20 Generatedon:07/26/20209:43 Patient name: MASOOD ALARCON Patient #: [id number] SSN: [id number] : 1960 Date of study: 07/26/2020 Page: Of Hemodynamic Procedure Report Patient Data Patient Demographics Procedure consent was obtained First Name: MASOOD Gender: Female Last Name: DORIAN : 1960 Middle Initial: D Age: 59 year(s) Patient #: [id number] Race: SSN: [id number] Additional ID: [id number] Contact details [address]: [address] [place] [address] State: [place] City: [place] Zip code: [address] Past Medical History Allergies Allergen Reaction Date Comments Reported Other allergy 01/29/2018 shellfish, sulfa, codeine, compazine, imitrex, morphine, sulfa, ultracet, ultram. Other allergy 04/27/2020 CODEINE, COMPAZINE, IMITREX, MORPHINE, SHELLFISH DERIVED, SULFA, ULTRACET, ULTRAM Other allergy 07/26/2020 SHELLFISH, CODEINE, COMPAZINE, LYRICA, IMITREX, MORPHINE, SULFA, ULTRAM, ULTRACT Admission Admission Data Admission Date: 07/26/2020 Admission Time: 6:58 Arrival Date: 07/26/2020 Arrival Time: 9:00 Admit Source: Other Insurance Payor: Private health insurance [facility] #: [id number] Height (in.): 62.99 BSA: 2.49 (m2) Height (cm.): 160 BMI: 64.45 (kg/m2) Weight (lbs.): 363.76 Weight (kg.): 165 Lab Results Lab Result Date: 07/26/2020 Lab Result Time: 0:00 Biochemistry Name Units Result Min Max BUN mg/dl 15 --(--*-)-- 7 18 Creatinine mg/dl 0.7 --(*---)-- 0.6 1.3 eGFR ml/min 90 --(*---)-- 90 120 NONAFRICAN CBC Name Units Result Min Max Hematocrit % 44.7 --(*---)-- 42 54 Hemoglobin g/dl 14.5 --(*---)-- 13.5 17.5 Procedure Procedure Types Cath Procedure Diagnostic Procedure [facility] w/Coronaries Sedation Charges Moderate Sedation up to 15 minutes Peripheral Cath Diagnostic Procedure Program Development Manager Peripheral Procedures Four Vessel Arteriogram Procedure Description Procedure Date Procedure Date: 07/26/2020 Procedure Start Time: 9:17 Procedure End Time: 9:41 Procedure Staff Name Function Luis Manuel Smith MD Performing Physician Monique Toscano RT Monitor Emily Taylor RT Scrub Clarisse Raygoza RN Nurse Procedure Data Cath Procedure Fluoroscopy Diagnostic fluoroscopy Total fluoroscopy Time: 5.8 time: 5.8 min min Diagnostic fluoroscopy Total fluoroscopy dose: dose: 1114 mGy 1114 mGy Contrast Material Contrast Material Type Amount (ml) Isovue 370 119 Entry Location Entry Primary Successful Side Size Upsize Upsize Entry Closure Succes sful Closure Location (Fr) 1 (Fr) 2 (Fr) Remarks Device Remarks Femoral Right 5 Fr Exoseal artery Estimated blood loss: 10 ml Diagnostic catheters Device Type Used For End Catheter Placement MULTIPACK JL 4.0 5Fr Procedure catheter MULTIPACK 3DRC 5Fr Procedure catheter Merit impress Brito 2 Procedure cath 100cm ([id number]) MULTIPACK Pigtail 5 Fr Ventriculography catheter Procedure Complications No complications Procedure Medications Medication Administration Route Dosage 0.9% NaCl I.V. 100 ml/hr Lidocaine 2% added to field 20 Heparin Flush Bag added to field 2 bags (1000units/500ml NS) Oxygen NC 2 l/min Versed I.V. 1 mg Fentanyl I.V. 50 mcg Versed I.V. 1 mg Fentanyl I.V. 50 mcg Lopressor I.V. 5 mg Versed I.V. 1 mg Fentanyl I.V. 50 mcg Versed I.V. 1 mg Hemodynamics Rest BSA: 2.49 (m2) HGB: 14.5 (g/dl) O2 Consumption: Estimated: 272.67 (ml/min) O2 Co nsumption indexed: Estimated:109.51 (ml/min/m) Heart Rate: 107 (bpm) Pressure Samples Time Site Value (mmHg) Purpose Heart Use Rate(bpm) 9:36 LV 158/41,44 Snapshot 107 9:36 AO 164/113(140) Pullback 95 Gradients Valve Time Site Site 2 Mean SEP/DFP Peak To Heart Use 1 (mmHg) (sec/min) Peak Rate (mmHg) (bpm) Aortic 9:36 LV AO 95 164/113(140) Snapshots Pre Cath Intra NCS Post Cath Vital Signs Time Heart Resp SPO2 etCO2 NIBP (mmHg) Rhythm Pain Sedation Rate (ipm) (%) (mmHg) Status Level (bpm) 9:07:49 85 15 98 36.7 163/105(128) NSR 0 (11) 10(A) , No pain 9:11:43 87 18 100 39 167/98(133) NSR 0 (11) 10(A) , No pain 9:15:37 90 12 96 34.5 157/109(132) NSR 0 (11) 10(A) , No pain 9:19:30 89 12 98 36.8 154/109(128) NSR 0 (11) 9(A) , No pain 9:23:52 94 14 96 36 153/110(138) NSR 0 (11) 9(A) , No pain 9:28:14 96 12 95 39.7 155/108(135) NSR 0 (11) 9(A) , No pain 9:32:06 90 15 95 36 164/107(132) NSR 0 (11) 9(A) , No pain 9:35:59 89 15 97 40.5 168/94(128) NSR 0 (11) 9(A) , No pain 9:39:53 104 14 97 37.5 167/104(136) NSR 0 (11) 10(A) , No pain Medications Time Medication Route Dose Verified Delivered Reason Notes Eff ectiveness by by 9:07:20 0.9% NaCl I.V. 100 Luis Manuel Clarisse used for ml/hr [place] Jaret procedure MD WATT 9:07:29 Lidocaine 2% added 20ml Luis Manuel Clarisse for local to vial [place] Jaret anesthetic field MD WATT 9:07:39 Heparin Flush added 2 Luis Manuel Clarisse used for Bag to bags [facility] Papi Raygoza procedure (1000units/500ml field RN NS) 9:07:49 Oxygen NC 2 Luis Manuel Clarisse for low 02 l/min [facility] Papi pederson MD, RN 9:16:22 Versed I.V. 1 mg Luis Manuel Clarisse for sedation [facility] Papi Raygoza MD, RN 9:16:30 Fentanyl I.V. 50 Luis Manuel Clarisse for sedation mcg [facility] Papi Raygoza MD, RN 9:24:31 Versed I.V. 1 mg Luis Manuel Clarisse for sedation [facility] Papi Raygoza MD, RN 9:24:36 Fentanyl I.V. 50 Luis Manuel Clarisse for sedation mcg [facility] Papi Raygoza MD, RN 9:27:50 Lopressor I.V. 5 mg Luis Manuel Clarisse for [facility] Papi Raygoza hypertension MD WATT 9:31:04 Fentanyl I.V. 50 Luis Manuel Clarisse for sedation mcg [facility] Papi Raygoza MD, RN 9:31:30 Versed I.V. 1 mg Luis Manuel Clarisse for sedation [facility] Papi Raygoza MD, RN 9:35:17 Versed I.V. 1 mg Luis Manuel Clarisse for sedation [facility] Papi Raygoza MD, RN Procedure Log Time Note 8:26:32 Diagnostic Cath Status : Elective 8:27:35 Informed consent obtained and on chart 8:30:02 Arrival Date: 07/26/2020 9:00:00 AM 8:30:17 Admit Source: Other 8:30:21 Insurance Payor : Private health insurance 8:33:13 Patient Height : 62.99 inches 8:33:16 Patient Weight : 363.76 lbs 8:37:18 Procedure Status Elective Heart Cath (OP). 8:50:34 Clarisse Raygoza RN sent for patient. Start room use. 9:00:42 Time tracking: Regular hours (M-F 7:00 - 5:00) 9:00:46 Plan of Care:Hemodynamics will remain stable., Cardiac rhythm will remain stable., Comfort level will be maintained., Respiratory function will remain adequate., Patient/ family verbilizes understanding of procedure., Procedure tolerated without complication., Recovers from procedure without complications.. 9:00:51 Patient received from Pre/Post Procedure Room to [facility] 2 Alert and oriented. Tansferred to table in Supine position. 9:00:52 Warm blankets applied, and jack hugger turned on for patient comfort. 9:00:52 Correct patient and procedure confirmed by team. 9:00:53 ECG and BP/O2 sat monitors applied to patient. 9:04:44 Full Disclosure recording started 9:04:54 H&P Date Dictated: 07/21/2020 Within 30 days and on chart., H&P Addendum completed by physician on day of procedure. (MUST COMPLETE FOR ALL OUTPATIENTS). 9:04:55 Pre-procedure instructions explained to patient. 9:04:56 Pre-op teaching completed and patient verbalized understanding. 9:04:58 Family in patients room. 9:04:59 Patient NPO since Midnight. 9:05:35 Patient allergic to Other allergySHELLFISH, CODEINE, COMPAZINE, LYRICA, IMITREX, MORPHINE, SULFA, ULTRAM, ULTRACT 9:05:37 Is the patient allergic to Iodine/contrast media? Yes. 9:05:39 Was the patient premedicated? Yes 9:05:41 Is patient on blood thinner?No 9:05:42 Patient diabetic? No. 9:05:50 Patient not . Patient is over age 55. 9:05:54 Previous problem with sedation/anesthesia? No ? 9:05:55 Snore? Yes 9:05:56 Sleep apnea? Yes 9:05:57 Deviated septum? No 9:05:58 Opens mouth fully? Yes 9:06:01 Sticks out tongue? Yes 9:06:07 Airway obstruction? No ? 9:07:04 Vital chart was started 9:07:20 0.9% NaCl 100 ml/hr I.V. was administered by Clarisse Raygoza RN; used for procedure; Verbal order read back and verified. 9:07:29 Lidocaine 2% 20ml vial added to field was administered by Clarisse Raygoza RN; for local anesthetic; Verbal order read back and verified. 9:07:39 Heparin Flush Bag (1000units/500ml NS) 2 bags added to field was administered by Clarisse Raygoza RN; used for procedure; Verbal order read back and verified. 9:07:49 Oxygen 2 l/min NC was administered by Clarisse Raygoza RN; for low 02 sats; Verbal order read back and verified. 9:08:48 Dentures? No ? 9:08:52 Pre procedure: right dorsailis pedis pulse 1+ Palpable, but thready & weak; easily obliterated 9:08:54 Patient pain scale 0/10 HEADACHE. . 9:09:14 IV patent on arrival in left forearm with 0.9% NaCl at O. 9:10:50 Lab Result : BUN 15 mg/dl 9::50 Lab Result : Creatinine 0.7 mg/dl 9:10:50 Lab Result : eGFR NONAFRICAN 90 ml/min 9:10:50 Lab Result : Hemoglobin 14.5 g/dl 9:10:50 Lab Result : Hematocrit 44.7 % 9:10:53 Lab results completed and on chart. 9:10:56 Right groin area was prepped with chlora-prep and draped in sterile fashion 9:10:57 Alarms reviewed by R. N. 9:10:57 Sharps counted by scrub and verified by R.N. 9:11:14 Procedure type changed to Cath procedure, Diagnostic procedure, LHC, LHC w/Coronaries, Sedation Charges, Moderate Sedation up to 15 minutes, Peripheral Cath Diagnostic Procedure, Program Development Manager Peripheral Procedures, Four Vessel Arteriogram 9:16:16 Physician arrived 9:16:17 --------ALL STOP TIME OUT------ 9:16:18 Final Timeout: patient, procedure, and site verified with staff and physician. All members of the team are in agreement. 9:16:21 Right groin site verified by team. 9:16:22 Versed 1 mg I.V. was administered by Clarisse Raygoza RN; for sedation; Verbal order read back and verified. 9:16:26 Fire Safety Assessment: A--An alcohol-based skin anteseptic being used preoperatively., C--Open oxygen or nitrous oxide is being used., D--An ESU, laser, or fiber-optic light is being used. 9:16:30 Fentanyl 50 mcg I.V. was administered by Clarisse Raygoza RN; for sedation; Verbal order read back and verified. 9:16:58 Physical assessment completed. ASA score P 2 - A patient with mild systemic disease as per Luis Manuel Smith MD. 9:17:10 1) 90+ Normal kidney functon but urine findings or structural abnormalities or genetic trait point to kidney disease. 9:17:13 Maximum allowable contrast dose (3.7 X eGFR X 0.75)250 ml. 9:17:19 Sedation plan: IV Moderate Sedation Medication:Versed, Fentanyl 9:17:31 Procedure started. 9:17:50 Local anesthetic to right femoral artery with Lidocaine 2% by Luis Manuel Smith MD.INITIAL ACCESS ONLY 9:23:42 A 5 Fr sheath was inserted into the Right Femoral artery 9:24:23 Use device set Femoral Dx 9:24:26 ACIST Syringe (72895) opened to sterile field. 9:24:26 Bag Decanter (2002S) opened to sterile field. 9:24:27 Medline Cath Pack ([id number]) opened to sterile field. 9:24:28 ACIST Hand Control (14608) opened to sterile field. 9:24:28 ACIST Manifold (55457) opened to sterile field. 9:24:29 DIAGNOSTIC Multipack 5Fr catheter set (NK2604) opened to sterile field. 9:24:31 Versed 1 mg I.V. was administered by Clarises Raygoza RN; for sedation; Verbal order read back and verified. 9:24:31 SHEATH 5FR [place] (LWF125) opened to sterile field. 9:24:32 EMERALD Guide Wire (678-080) opened to sterile field. 9:24:36 Fentanyl 50 mcg I.V. was administered by Clarisse Raygoza RN; for sedation; Verbal order read back and verified. 9:24:45 A MULTIPACK JL 4.0 5Fr catheter was advanced over the wire and used for Procedure. 9:24:49 LCA angiography performed. 9:26:15 Catheter removed. 9:26:23 A MULTIPACK 3DRC 5Fr catheter was advanced over the wire and used for Procedure. 9:26:26 RCA angiography performed. 9:27:25 Left carotid angiography performed. 9:27:50 Lopressor 5 mg I.V. was administered by Clarisse Raygoza RN; for hypertension; Verbal order read back and verified. 9:30:45 Catheter removed. 9:31:04 Fentanyl 50 mcg I.V. was administered by Clarisse Raygoza RN; for sedation; Verbal order read back and verified. 9:31:30 Versed 1 mg I.V. was administered by Clarisse Raygoza RN; for sedation; Verbal order read back and verified. 9:32:02 A MAZ impress Brito 2 cath 100cm ([id number]) was advanced over the wire and used for Procedure. 9:35:04 Right carotid angiography performed. 9:35:17 Versed 1 mg I.V. was administered by Clarisse Raygoza RN; for sedation; Verbal order read back and verified. 9:35:17 Catheter removed. 9:35:29 A MULTIPACK Pigtail 5 Fr catheter was advanced over the wire and used for Ventriculography. 9:35:33 LV angiography performed. 9:36:32 EF : 55 % 9:36:55 Catheter removed. 9:36:59 EXOSEAL 5Fr (EX500) opened to sterile field. 9:37:01 Tegaderm 4 x 4 (1626W) opened to sterile field. 9:37:39 Sheath removed intact; hemostasis achieved with Exoseal to the Right Femoral artery. 9:37:41 Procedure ended.(Physican Out) 9:37:54 Fluoroscopy time 05.80 minutes. 9:37:59 Flurop Dose total: 1114 9:37:59 Fluoroscopy dose: 1114 mGy 9:38:06 Dose Area Product 85216 mGy/cm. 9:38:14 Contrast amount:Isovue 370 119ml. 9:38:28 Maximum allowable dose exceeded? No. 9:38:31 Sharps counted by scrub and verified by R.N. 9:38:35 Insertion/operative site no bleeding no hematoma. 9:38:41 Post-op/insertion site Right Femoral artery dressed using a 4 x 4 and Tegaderm. 9:38:56 Post Procedure Pulses reassessed and unchanged 9:39:10 Post procedure rhythm: unchanged. 9:39:13 Estimated blood loss: 10 ml 9:39:16 Post procedure instruction explained to patient.Patient verbalizes understanding. 9:40:09 Procedure and supply charges have been captured, reviewed, submitted and are correct. 9:40:36 Procedure Complication : No complications 9:40:45 Vital chart was stopped 9:40:[address] [facility] Findings: mild to moderate CAD (<70%) 9:40:59 4Vessel Findings: mild to moderate disease (<70%, see procedure notes) 9:41:09 Report given to Pre/Post Procedure Room. 9:41:17 Patient transfered to Pre/Post Procedure Room with Stretcher. 9:41:20 Procedure ended. 9:41:20 Full Disclosure recording stopped Device Usage Item Name Manufacture Quantity Catalog Hospital Part Current Minimal Lot# / Number Charge Number Stock Stock Serial# Code ACIST Acist 1 66326 679984 053094 402183 20 Syringe Medical (19644) Systems Inc Bag Decanter Microtek 1 2001S 676338 92942 235937 5 (2001S) Medical Inc. Medline Cath Medline 1 [id number] 579159 67552 586021 5 Pack ([id number]) ACIST Hand Acist 1 64821 523547 496312 700144 5 Control Medical (41619) Systems Inc ACIST Acist 1 37448 351815 902307 322500 5 Manifold Medical (33271) Systems Inc DIAGNOSTIC Cardinal 1 PC5967 004592 01955 546617 30 Multipack Health 5Fr catheter set (OX7642) SHEATH 5FR Terumo 1 NNP177 561920 490839 568601 5 [place] (QNP499) EMERALD Cardinal 1 502-455 993473 585533 688734 5 Guide Wire [facility] (502455) MULTIPACK JL Cardinal 1 039279 5 4.0 5Fr Health catheter MULTIPACK Cardinal 1 449874 5 3DRC 5Fr Health catheter Merit Merit 1 [id number] 800978 484776 0 impress Medical Brito 2 cath 100cm ([id number]) MULTIPACK Cardinal 1 968758 5 Pigtail 5 Fr Health catheter EXOSEAL 5Fr Cardinal 1 EX500 865608 548911 165440 10 (EX500) Health Tegaderm 4 x 3M 1 1626W 436243 790914 708206 5 4 (1626W) Signature Audit Foster Stage Time Signature Unsigned Intra-Procedure 07/26/2020 Monique Toscano 9:41:42 AM RT(R); Clarisse Raygoza RN; Luis Manuel Smith MD Signatures Performing Physician : Signature : Luis Manuel Smith MD Date : Time : Monitor : Monique Toscano Signature : RT Date : Time : Nurse : Clarisse Signature : Jaret RN Date : Time : [address] [place] [address]
[~2020-07-26 06:58] MED LIST changes: +TALWIN NX1 TAB PO
[2020-07-26] MEDS ORDERED: PREDNISONE20 MG PO (07:21)
[2020-07-26] MEDS ORDERED: TOPROL XL50 MG PO (07:22)
[2020-07-26] MEDS ORDERED: ZOFRAN ODT4 MG/UDTAB PO (07:22)
[2020-07-26] MEDS ORDERED: BREO ELLIPTA 11 EACH INH (07:22)
[2020-07-26 07:33] VITALS: BP 129/82; Ht 160 cm; Wt 165.7 kg
[2020-07-26 08:30] LABS: ALT (SGPT) 20 U/L (10-68); CALC OSMOLALITY 280 mosm/kg (275-300); CALCIUM 9.5 mg/dL (8.5-10.1); CARBON DIOXIDE 27.6 mmol/L (21.0-32.0); CHLORIDE - SERUM 105 mmol/L (98-107); CHOL - HDL RATIO 2.8 ratio (2.3-4.1); CHOLESTEROL, TOTAL 182 mg/dL (0-200); CREATININE - SERUM 0.7 mg/dL (0.6-1.3); GLUCOSE 134 mg/dL (74-106); HDL CHOLESTEROL 65 mg/dL (32-96); LDL CHOLESTEROL 108 mg/dL (0-100); LDL-HDL RATIO 1.7 ratio (1.5-3.5); POTASSIUM - SERUM 4.2 mmol/L (3.5-5.1); SODIUM 139 mmol/L (136-145); TRIGLYCERIDE 47 mg/dL (30-200); UREA NITROGEN 15 mg/dL (7-18); eGFR NON AFRICAN AMERICAN > 90 mL/min (90-120)
[2020-07-26 08:38] LABS: BASOPHILS 0.1 % (0-2); EOSINOPHILS 0 % (0-7); HEMATOCRIT 44.7 % (36.0-48.0); HEMOGLOBIN 14.5 g/dL (12-16); IMMATURE GRANULOCYTES 0.4 % (0-5); LYMPHOCYTES 6.7 % (15-50); MCHC 32.4 g/dL (31.0-37.0); MCV 95.7 fL (80.0-100.0); MEAN PLATELET VOLUME 10.9 fL (7.4-10.4); MONOCYTES 2.9 % (2-11); NEUTROPHILS 89.9 % (40-80); PLATELET COUNT 189 10x3/uL (130-400); RBC 4.67 10x6/uL (4.00-5.40); RDW 12.7 % (11.5-14.5); WBC 12.6 10x3/uL (4.8-10.8)
--- NOTE | 2020-07-26 09:59 | NUR ---
PT RECEIVED VIA STRETCHER FROM [employer] SALES REPRESENTATIVE FOR RECOVERY. PT SLEEPING BUT VERBALLY AROUSABLE. 5FR EXOCELE TO R GROIN, SOFT TO TOUCH DRESSING CDI NO S/S HEMATOMA OR BLEEDING NOTED. LEG PINK AND WARM, PEDAL PULSES PALPALBE. PT AND INSTRUCTED FOR HER TO LAY FLAT AND KEEP HEAD ON PILLOW. IV PATENT INFUSING VIA L ARM PER ORDERS. PT PLACED ON CARDIAC MONITORS AND O2 VIA NC AT 2L. HR PACED RATE AT 81, RR 11, SAT 94. CALL LIGHT IN REACH. DR DARNELL WAS IN ROOM PRIOR TO PT ARRIVAL AND SPOKE WITH REGARDING PROCEDURE RESULTS AND PLAN OF CARE.
--- NOTE | 2020-07-26 10:16 | NUR ---
PT RESTING W/O COMPLAINTS. VSS. R GROIN SOFT, DRESSING CDI NO S/S HEMATOMA OR BLEEDING NOTED. AT BS, CALL LIGHT IN REACH
--- NOTE | 2020-07-26 11:00 | NUR ---
PT RESTING C/O COMPLAINTS. R GROIN SOFT, DRESSING CDI NO S/S HEMATOMA OR BLEEDING. HOB ELEVATED SLIGHTLY. APPLE JUICE SERVED PER REQUEST, OFFERED PT SANDWICH, SHE DECLINES AT THIS TIME STATES SHE WILL EAT WHEN SHE IS DISCHARGED. CALL LIGHT IN REACH, VSS AT PRESENT
--- NOTE | 2020-07-26 11:30 | NUR ---
PT RESTING COMFORTALBY, DENIES PAIN OR NEEDS. R GROIN SOFT, DRESSING REMAINS CDI NO S/S HEMATOMA OR BLEEDING NOTED.
--- NOTE | 2020-07-26 11:45 | NUR ---
R GROIN SOFT, DRESSING CDI NO S/S HEMATOMA OR BLEEDING. DISCHARGE INSTRUCTIONS REVIEWED W PT AND , BOTH VERBALIZED UNDERSTANDING. IV REMOVED W CATH INTACT, MONITORS REMOVED. PT UP TO DRESS FOR DISCHARGE.
--- NOTE | 2020-07-26 11:59 | NUR ---
PT AMBULATED TO BR, VOIDING W/O DIFFICULITY. PT THEN DISCHARGED VIA WC TO WAITING IN PRIVATE VEHICLE. PT HAD ALL BELONGINGS AND DISCHARGE INSTRUCTIONS.
--- NOTE | 2020-07-27 08:21 | OP ---
PATIENT NAME: MASOOD ALARCON MEDICAL RECORD: [id number] :62 LOCATION:D.CAT ADMISSION DATE: SURGEON: TERENCE DARNELL MD DATE OF OPERATION: 07/26/2020 PROCEDURE: Left heart catheterization, selective coronary angiography, plus 4-vessel arteriography, right femoral artery approach. CATHETERS: A 5-Japanese sheath, 5/4 left and right Stevie, 5/4 pig. Procedure was well tolerated. The patient was returned to the gutiérrez. Sheath removed. ExoSeal device was placed. FINDINGS: Left ventriculography in 30-degree ROBERTS view: Normal wall motion and normal systolic function. CORONARY ANATOMY: LEFT MAIN: Left main is free of disease. LAD: Free of disease in the diagonal system. CIRCUMFLEX: Free of disease in the marginal system. RIGHT CORONARY ARTERY: Dominant artery, gives rise to PDA, previous stenting is widely patent. No progression of [place] disease. The JR catheter was then pulled approximately to the right common carotid, this shows smooth-walled, free of disease. Right internal carotid is smooth-walled vessel, free of disease. Right external carotid is smooth-walled, free of vessel disease. The left internal carotid is selectively engaged. Left common carotid smooth-walled vessel, free of disease. Left internal carotid is smooth-walled vessel, free of disease. Left external carotid is smooth-walled vessel, free of disease. IMPRESSION: No left ventricular systolic function. Widely patent stent, no significant severe vascular disease. TRANSINT:[id number] Voice Confirmation ID: [id number] DOCUMENT ID: [id number] TERENCE DARNELL MD at 0821 CC: [id number] DICTATION DATE: 07/26/20944 PELLETIZER OPERATOR: 07/26/201912 [facility] 07/26/20 [facility] [address] [id number]
== END 2020-07-26 11:59 | disposition home or self-care (01) ==
LOC: D.CATH 06:58
PROVIDERS: ATTEND Internal Medicine Interventional Cardiology
DX: R55 Syncope and collapse (principal); R06.02 Shortness of breath; I10 Essential (primary) hypertension; R60.0 Localized edema; Z95.0 Presence of cardiac pacemaker; I25.10 Atherosclerotic heart disease of native coronary artery without angina pectoris

== ENCOUNTER 2020-10-27 08:00 | Outpatient (CLI) | payer OTHER ==
[2020-10-10 00:34] VITALS: BMI 62.5
[~2020-10-27 08:00] MED LIST changes: +ALKASELTZER; +BREO ELLIPTA 11 EACH INH; +CLARITIN 10 MG10 MG PO; +GALZIN50 MG PO; +LASIX40 MG PO; +METOLAZONE2.5 MG PO; +MUCUS; +PREDNISONE20 MG PO; +TESSALON PERLE100 MG; +VITAMIN D-32000 UNI1
== END 2020-10-27 08:01 | disposition home or self-care (01) ==
LOC: D.RT 08:00
PROVIDERS: ATTEND Internal Medicine Pulmonary Disease
DX: J45.909 Unspecified asthma, uncomplicated (principal); Z20.822 Contact with and (suspected) exposure to COVID-19

== ENCOUNTER → 2020-12-01 08:00 | Outpatient (CLI) | payer OTHER ==
[2020-10-10 00:34] VITALS: BMI 62.5
== END | disposition home or self-care (01) ==
LOC: D.LAB 08:00
PROVIDERS: ATTEND Internal Medicine Pulmonary Disease
DX: Z20.822 Contact with and (suspected) exposure to COVID-19 (principal)

== ENCOUNTER → 2021-02-09 13:47 | Outpatient (CLI) | payer OTHER ==
[2020-10-10 00:34] VITALS: BMI 62.5
== END | disposition home or self-care (01) ==
LOC: D.MRI 13:47
PROVIDERS: ATTEND Family Medicine
DX: M54.6 Pain in thoracic spine (principal)